=== PATIENT | male | born 1945 | race Caucasian/White ===

== ENCOUNTER 2018-08-11 13:58 | Emergency (ER) | payer OTHER ==
[~2018-08-11] VITALS: Ht 172.7 cm; Wt 104.3 kg
[~2018-08-11 13:58] MED LIST: AMARYL2 M1 PO; ASPIR 8181 MG PO; AVODART0.5 MG PO; FIBER CHOICE C1.5 G1 PO; FISH OIL 1,001000 M2 PO; FLEXERIL PO; GLUCOPHAGE XR750 MG PO; LEXAPRO 10 MG T10 M2 PO; LIPITOR 20 MG T20 M1 PO; MEDROLDOSEPACK PO; METFORMIN HCL500 MG PO; MOBIC7.5 MG PO; MULTI-VITAMIN1 EAC5 PO; NORCO 5-325 TA1 EAC1 PO; NORVASC5 MG PO; PREDNISONE 20 M20 M1 PO; PROBIOTIC1 EAC1 PO; TYLENOL325 MG PO; VITAMIN E400 UNIT PO
[2018-08-11 15:06] VITALS: BP 147/64
== END 2018-08-11 15:06 | disposition home or self-care (01) ==
LOC: M.ERS 13:58
DX: S61.211A Laceration without foreign body of left index finger without damage to nail, initial encounter (principal); I10 Essential (primary) hypertension; Z91.041 Radiographic dye allergy status; W26.8XXA Contact with other sharp object(s), not elsewhere classified, initial encounter; Y93.89 Activity, other specified; Y92.89 Other specified places as the place of occurrence of the external cause; Y99.8 Other external cause status

== ENCOUNTER → 2020-04-26 | Outpatient (CLI) | payer OTHER | LOC: M.RAD 11:59 | PROVIDERS: ATTEND Family Medicine | DX: S22.42XA Multiple fractures of ribs, left side, initial encounter for closed fracture (principal); R07.81 Pleurodynia; X58.XXXA Exposure to other specified factors, initial encounter; Y93.89 Activity, other specified; Y92.89 Other specified places as the place of occurrence of the external cause; Y99.8 Other external cause status ==

== ENCOUNTER 2021-03-15 04:48 | Emergency (ER) | payer OTHER ==
[~2021-03-15] VITALS: Ht 172.7 cm; Wt 89.8 kg
[2021-03-15 05:47] LABS: ABSOLUTE EOSINOPHILS 0.3 thou/uL (0.0-0.7); ABSOLUTE LYMPHOCYTES 2.2 thou/uL (0.8-5.3); ABSOLUTE MONOCYTES 0.8 thou/uL (0.0-1.2); BASOPHILS 0.2 %; EOSINOPHILS 4.2 %; HEMATOCRIT 42.5 % (42.0-52.0); HEMOGLOBIN 14.3 gm/dL (14.0-18.0); LYMPHOCYTES 29.9 %; MCH 30.6 pg (26.0-34.0); MCHC 33.6 g/dL (28.0-37.0); MCV 91.2 fL (80.0-100.0); MONOCYTES 11.2 %; MPV 7.4 fl. (7.2-11.1); NUCLEATED RBCS 0 /100WBC; PLATELET COUNT* 277 thou/uL (150-400); POLYS 54.5 %; RBC 4.66 mil/uL (4.50-6.00); RDW-CV 13.4 % (10.5-14.5); WBC 7.3 thou/uL (4.0-11.0)
[2021-03-15 05:51] LABS: CALCIUM 8.2 mg/dL (8.5-10.1); CREATININE 0.7 mg/dL (0.6-1.3); POTASSIUM 3.7 mmol/L (3.5-5.1)
[2021-03-15 06:04] LABS: URINE BILIRUBIN NEGATIVE (Negative); URINE BLOOD 2+ (Negative); URINE CLARITY CLEAR; URINE COLOR YELLOW; URINE GLUCOSE-RANDOM NEGATIVE (Negative); URINE KETONES NEGATIVE (Negative); URINE LEUKOCYTES-REFLEX NEGATIVE (Negative); URINE NITRITE-REFLEX NEGATIVE (Negative); URINE PROTEIN NEGATIVE (Negative); URINE SPECIFIC GRAVITY >= 1.030 (1.005-1.030); URINE UROBILINOGEN 0.2 E.U./dl (0.2-1.0)
[2021-03-15 06:40] LABS: BACTERIA-REFLEX 1-9 Few /HPF (None Seen); CASTS None Seen /LPF (None Seen); CRYSTALS None Seen /LPF (None Seen); SQUAMOUS 4-10 Moderate /LPF (0-3); URINE RBC 3-10 Few /HPF (0-2); URINE WBC-REFLEX 0-5 Rare /HPF (0-5)
[2021-03-15] MEDS ORDERED: FLEXERIL PO (08:48)
[2021-03-15] MEDS ORDERED: ZOFRAN ODT4 MG DISSOLVE (08:48)
[2021-03-15] MEDS ORDERED: HYDROCODON-ACE1 EAC7 PO (08:48)
[2021-03-15 08:56] VITALS: BP 157/68
[2021-03-16] MEDS ORDERED: PERCOCET 5-3251 EACH PO (19:12)
[2021-03-16] MEDS ORDERED: TORADOL 10 MG T10 MG PO (19:17)
[2021-03-19] MEDS ORDERED: ADVIL100 M3 PO (00:12)
[2021-03-20] MEDS ORDERED: GABAPENTIN100 MG PO (12:25)
== END 2021-03-15 08:57 | disposition home or self-care (01) ==
LOC: M.ERS 04:48
PROVIDERS: Emergency Medicine
DX: S39.011A Strain of muscle, fascia and tendon of abdomen, initial encounter (principal); I10 Essential (primary) hypertension; Z91.041 Radiographic dye allergy status; X58.XXXA Exposure to other specified factors, initial encounter; Y93.89 Activity, other specified; Y92.89 Other specified places as the place of occurrence of the external cause; Y99.8 Other external cause status

== ENCOUNTER 2021-03-16 17:17 | Emergency (ER) | payer OTHER ==
[~2021-03-16] VITALS: Ht 172.7 cm; Wt 89.8 kg
[~2021-03-16 17:17] MED LIST changes: +HYDROCODON-ACE1 EAC7 PO; +ZOFRAN ODT4 MG DISSOLVE
[2021-03-16 18:03] LABS: ABSOLUTE EOSINOPHILS 0.2 thou/uL (0.0-0.7); ABSOLUTE LYMPHOCYTES 1.8 thou/uL (0.8-5.3); ABSOLUTE MONOCYTES 0.8 thou/uL (0.0-1.2); ABSOLUTE NEUTROPHILS 5.4 thou/uL (1.6-8.1); BASOPHILS 0.5 %; HEMATOCRIT 43.2 % (42.0-52.0); HEMOGLOBIN 14.8 gm/dL (14.0-18.0); LYMPHOCYTES 21.6 %; MCH 31.3 pg (26.0-34.0); MCHC 34.3 g/dL (28.0-37.0); MCV 91.3 fL (80.0-100.0); MONOCYTES 9.4 %; MPV 7.1 fl. (7.2-11.1); NUCLEATED RBCS 0 /100WBC; PLATELET COUNT* 280 thou/uL (150-400); POLYS 65.5 %; RBC 4.73 mil/uL (4.50-6.00); RDW-CV 13.3 % (10.5-14.5); WBC 8.2 thou/uL (4.0-11.0)
[2021-03-16 18:11] LABS: CALCIUM 8.8 mg/dL (8.5-10.1); CREATININE 0.9 mg/dL (0.6-1.3); POTASSIUM 3.9 mmol/L (3.5-5.1)
[2021-03-16 18:16] LABS: ALBUMIN 3.8 g/dL (3.4-5.0); TOTAL BILIRUBIN 0.3 mg/dL (<0.1-1.0); TOTAL PROTEIN 7.1 g/dL (6.4-8.2)
[2021-03-16] MEDS ORDERED: PERCOCET 5-3251 EACH PO ×2 (19:12)
[2021-03-16] MEDS ORDERED: TORADOL 10 MG T10 MG PO ×2 (19:17)
[2021-03-16 19:39] VITALS: BP 140/76
== END 2021-03-16 19:40 | disposition home or self-care (01) ==
LOC: M.ERS 17:17
PROVIDERS: Nurse Practitioner Family
DX: N50.3 Cyst of epididymis (principal); N43.2 Other hydrocele; N50.812 Left testicular pain; E11.9 Type 2 diabetes mellitus without complications; I10 Essential (primary) hypertension; Z91.041 Radiographic dye allergy status; Z79.82 Long term (current) use of aspirin; Z79.899 Other long term (current) drug therapy

== ENCOUNTER 2021-03-18 15:57 | Inpatient (IN) | payer OTHER ==
[~2021-03-18] VITALS: Ht 172.7 cm; Wt 86.4 kg
[~2021-03-18 15:57] MED LIST changes: +PERCOCET 5-3251 EACH PO; +TORADOL 10 MG T10 MG PO
[2021-03-18 16:04] VITALS: BP 135/70
[2021-03-18 16:17] LABS: ABSOLUTE EOSINOPHILS 0.2 thou/uL (0.0-0.7); ABSOLUTE LYMPHOCYTES 2.1 thou/uL (0.8-5.3); ABSOLUTE MONOCYTES 1.2 thou/uL (0.0-1.2); BASOPHILS 0.4 %; EOSINOPHILS 2.1 %; HEMATOCRIT 46.5 % (42.0-52.0); HEMOGLOBIN 15.8 gm/dL (14.0-18.0); LYMPHOCYTES 21.6 %; MCH 31.2 pg (26.0-34.0); MCHC 34.1 g/dL (28.0-37.0); MCV 91.5 fL (80.0-100.0); MONOCYTES 13.1 %; MPV 6.9 fl. (7.2-11.1); NUCLEATED RBCS 0 /100WBC; PLATELET COUNT* 305 thou/uL (150-400); POLYS 62.8 %; RBC 5.08 mil/uL (4.50-6.00); RDW-CV 13.5 % (10.5-14.5); WBC 9.5 thou/uL (4.0-11.0)
[2021-03-18 16:26] LABS: CALCIUM 9.5 mg/dL (8.5-10.1); CREATININE 0.9 mg/dL (0.6-1.3); POTASSIUM 3.7 mmol/L (3.5-5.1)
[2021-03-18 16:31] LABS: PROTIME 10.3 Seconds (9.20-11.50); TOTAL BILIRUBIN 0.4 mg/dL (<0.1-1.0); TOTAL PROTEIN 7.7 g/dL (6.4-8.2)
[2021-03-18 20:00] VITALS: BP 167/83
[2021-03-18 20:11] VITALS: BP 126/87
[2021-03-19] MEDS ORDERED: ADVIL100 M3 PO ×2 (00:12)
[2021-03-19 00:33] VITALS: BP 153/40
[2021-03-19 03:45] VITALS: BP 170/70
--- NOTE | 2021-03-19 05:03 | NUR ---
RECEIVED PT FROM ED AT APPROX 1999. PT IS AWAKE AND ORIENTED X4. PT IS NOT IN DISTRESS, NO DESATURATIONS NOTED ON ROOM AIR. PROCESSING ANALYST IN PLACE TRACING SR WITH 1D AVB. NIHSS DONE CHARTED. PT C/O BURNING PAIN ON LEFT INNER THIGH RADIATING DOWN TO LEG, TORADOL GIVEN ORDERED WITH PARTIAL RELIEF. CALL LIGHT WITHIN REACH. HOURLY ROUNDING DONE FOR PT SAFETY. HIGH FALL PRECAUTIONS IN PLACE.
[2021-03-19 08:00] VITALS: BP 139/76
--- NOTE | 2021-03-19 10:21 | EKG ---
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 : 1945 Requested By: Juanito Bunn Order Number: [id number] MD: Steven Badillo Measurements Intervals [place] Rate: 78 P: 23 PA: 212 QRS: -55 QRSD: 92 T: 34 QT: 381 QTc: 434 Interpretive Statements Sinus rhythm Borderline prolonged PA interval Abnormal R-wave progression, late transition Inferior infarct, old No previous ECG available for comparison Electronically Signed On 03-19-2021 10:21:37 CDT by Steven Badillo [email or web address] <ELECTRONICALLY SIGNED> By: Steven Badillo MD, [facility] 03/19/21 1021 1605 1605 Steven Badillo MD, [facility] /EPI
[2021-03-19 12:15] VITALS: BP 145/73
[2021-03-19 17:37] VITALS: BP 148/72
[2021-03-19 20:00] VITALS: BP 163/75
[2021-03-20] VITALS: BP 157/70
[2021-03-20 04:00] VITALS: BP 153/74
--- NOTE | 2021-03-20 04:46 | NUR ---
ASSUMED CARE OF PT AFTER REPORT AT 1930. PT A&OX4. VSS. PHYSICAL ASSESSMENT COMPLETED AND CHARTED. PT ON RA. PT TRACING SR/SB/1ST DEG/PAC/PVC/BIGEMINY ON TELE. PT UP WITH 1 WITH A WALKER TO RESTROOM. PT COMPLAINED OF LEFT TESTICLE PAIN-MED GIVEN PER DEC. FALL PRECAUTIONS IN PLACE. CALL LIGHT WITHIN REACH.
[2021-03-20 05:00] LABS: HEMATOCRIT 43.7 % (42.0-52.0); MCH 31.2 pg (26.0-34.0); MCHC 34.3 g/dL (28.0-37.0); MCV 91.1 fL (80.0-100.0); RBC 4.8 mil/uL (4.50-6.00); RDW-CV 13.4 % (10.5-14.5); WBC 8.4 thou/uL (4.0-11.0)
[2021-03-20 05:09] LABS: CALCIUM 8.3 mg/dL (8.5-10.1); CREATININE 0.6 mg/dL (0.6-1.3); POTASSIUM 3.8 mmol/L (3.5-5.1)
[2021-03-20 08:00] VITALS: BP 147/76
[2021-03-20 11:19] VITALS: BP 117/78
[2021-03-20] MEDS ORDERED: GABAPENTIN100 MG PO ×2 (12:25)
[2021-03-20 12:51] VITALS: BP 117/78
--- NOTE | 2021-03-20 18:24 | NUR ---
VS CHARTED, SR ON TELE, ROOM AIR, LEFT HIP AND GROIN PAIN- LEFT SIDED WEAKNESS LOWER EXTREMITY, UP WITH ONE, REC. DISCHARGE ORDERS- REVIEWED WITH PATIENT AND DAUGHTER, TELE MONITOR AND IV REMOVED WITHOUT COMPLICATION. CARE NOTES GIVEN, SCRIPTS SENT ELECTRONICALLY, PATIENT TAKEN IN WHEELCHAIR TO ER EXIT BY NURSING STAFF, PICKED UP BY DAUGHTER IN FAMILY CAR
--- NOTE | 2021-03-21 22:26 | CON ---
[address] [address] CONSULTATION Name: SOFYKATHLEEN Vonnie Room: [address] M.R.#: [id number] Admission: 03/18/21 Attend Phys: Robson Mata Discharge: 03/20/21 Date of : 43 Report #: [id number] THIS REPORT FOR: cc: Joss Garcia Vincent R. DO Khosla, Parveen K. MD ~ DOC #: [id number] Guillaume Avina MD DATE OF CONSULTATION: 03/19/2021 HISTORY OF PRESENT ILLNESS: This is a 76-year-old male patient who was seen by me for somewhat of an unusual history. I talked to Dr. Torres and I talked to the patient and the family, and I reviewed the patient's notes. It looks like the patient has been to emergency room multiple times and they finally admitted him. I am not so clear about his symptoms. He said he has been falling down because he is weak on the left side. When I asked him if, he just said the leg or arm. He says it is mostly the leg, but there is a little bit of arm. I went back and reviewed his records in the computer. 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 He did get his Shingrix vaccine couple of weeks ago, but he is saying that his symptoms are progressing now. His symptom is predominantly weakness. REVIEW OF SYSTEMS: Indicated that he does have diabetes. His blood sugar does not run too high, but according to him, it stays in 180s-190s that is where it was when he was here. He does have a history of anxiety and he takes Lexapro for that. He does have hyperlipidemia. He is not complaining of any new eye, ENT, cardiac, respiratory, GI, , musculoskeletal, constitutional, dermatological, hematological, psychiatric, or throat symptoms associated with present symptoms except as summarized above. PAST MEDICAL HISTORY: Positive for back pain. FAMILY HISTORY: Unremarkable. SOCIAL HISTORY: He does not smoke or drink any alcohol. PHYSICAL EXAMINATION: NEUROLOGIC: Indicates he is alert, responsive, able to follow simple and complex commands. His memory, fund of knowledge is at his baseline. His speech is unremarkable. Cranial nerve examination 2-12 is unremarkable. On my examination, he is only minimally weak on the left side. If he is weak, his position sense is intact. His reflexes can be elicited in the knee and both plantars appear to be downgoing. There is no cerebellar sign. I could not look at the patient's fundus, very well-built individual who does not have any [facility] [address] [place] [address] CONSULTATION Name: KATHLEEN GOETZ Room: [address] IN [facility]#: [id number] Admission: 03/18/21 Attend Phys: Robson Mata Discharge: 03/20/21 Date of : 43 Report #: [id number] dysmorphic features of eyes, ears, or face. CARDIAC: Unremarkable. No respiratory difficulty was noticed. Pulses are palpable. VITAL SIGNS: Blood pressure is, BUN 76, respirations 16, pulse is 63, temperature is 97.6. LABORATORY DATA: White count is 9.5. GFR is 82. IMPRESSION AND PLAN: Very difficult to form in this patient because I do not think we can put an anatomical location on the patient's symptoms clinically. I think he needs further workup. Firstly, I think we should do the workup to look for a stroke or any cervical radiculopathy because his symptoms are in the left arm as well as in the left leg. We will ask Physical Therapy, Occupational Therapy to ambulate and see how he does. 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 I discussed all of this with the patient and he wants to proceed with this testing. Thank you very much for this referral. Guillaume Avina MD PK/LEE/[email or web address] <ELECTRONICALLY SIGNED> By: Guillaume Avina MD 03/21/21 2226 1103 2114Pzan Avina MD /nt
== END 2021-03-20 13:20 | disposition home or self-care (01) | DRG 69 ==
LOC: M.ERS 15:57 → M.TBA-ER 17:16 → M.2W 19:14
PROVIDERS: Family Medicine; ADMIT Internal Medicine; ATTEND Internal Medicine
DX: G45.9 Transient cerebral ischemic attack, unspecified (principal); I10 Essential (primary) hypertension; F41.9 Anxiety disorder, unspecified; E78.5 Hyperlipidemia, unspecified; E11.40 Type 2 diabetes mellitus with diabetic neuropathy, unspecified; T50.Z95A Adverse effect of other vaccines and biological substances, initial encounter; M79.605 Pain in left leg; B02.9 Zoster without complications; Z20.822 Contact with and (suspected) exposure to COVID-19; Y92.89 Other specified places as the place of occurrence of the external cause; Z79.899 Other long term (current) drug therapy; Z79.4 Long term (current) use of insulin; Z91.041 Radiographic dye allergy status

== ENCOUNTER → 2021-03-29 | Outpatient (CLI) | payer OTHER ==
[~2021-03-29] MED LIST changes: +ADVIL100 M3 PO; +GABAPENTIN100 MG PO
== END ==
LOC: M.MRI 10:56
PROVIDERS: ATTEND Internal Medicine
DX: M47.816 Spondylosis without myelopathy or radiculopathy, lumbar region (principal); M54.5 Low back pain; R53.1 Weakness; M48.061 Spinal stenosis, lumbar region without neurogenic claudication

== ENCOUNTER → 2021-04-14 | Outpatient (CLI) | payer OTHER ==
[~2021-04-14] MED LIST changes: +COZAAR 25 MG TA25 M1 PO; +NEURONTIN300 MG PO
== END ==
LOC: M.PC 11:04
PROVIDERS: ATTEND Anesthesiology Pain Medicine
DX: M47.815 Spondylosis without myelopathy or radiculopathy, thoracolumbar region (principal); M48.05 Spinal stenosis, thoracolumbar region; M54.5 Low back pain; I10 Essential (primary) hypertension; F41.9 Anxiety disorder, unspecified; E11.9 Type 2 diabetes mellitus without complications; E78.5 Hyperlipidemia, unspecified; E66.9 Obesity, unspecified

== ENCOUNTER → 2021-04-19 | Outpatient (CLI) | payer OTHER | END | disposition home or self-care (01) | LOC: M.PC 12:47 | PROVIDERS: ATTEND Anesthesiology Pain Medicine | DX: M54.5 Low back pain (principal); G89.29 Other chronic pain; I10 Essential (primary) hypertension; E11.9 Type 2 diabetes mellitus without complications; E78.5 Hyperlipidemia, unspecified; F41.9 Anxiety disorder, unspecified; Z98.890 Other specified postprocedural states; Z79.899 Other long term (current) drug therapy; Z98.52 Vasectomy status; Z91.041 Radiographic dye allergy status; Z87.891 Personal history of nicotine dependence ==